=== PATIENT | female | born 1955 | race Native Hawaiian/Other Pacific Islander ===

== ENCOUNTER 2022-03-24 11:21 | Emergency (ER) | payer OTHER ==
[~2022-03-24] VITALS: Ht 157.5 cm; Wt 68.9 kg
[2022-03-24 11:35] VITALS: TEMP 97.7
[2022-03-24 11:51] LABS: PLATELET COUNT 178 K/uL (152-353)
[2022-03-24 11:54] LABS: POTASSIUM 4.2 mmol/L (3.6-5.2)
[2022-03-24 12:40] VITALS: BP 122/74
[2022-03-24] MEDS ORDERED: COATED ASPIRIN325 MG PO (13:46)
[2022-03-24] MEDS ORDERED: BENZTROPINE2 MG PO (13:47)
[2022-03-24] MEDS ORDERED: CLON1TAB18 PO (13:47)
[2022-03-24] MEDS ORDERED: DIVALPROEX125 M1 PO ×2 (13:48→13:50)
[2022-03-24] MEDS ORDERED: DOK100 MG PO (13:51)
[2022-03-24] MEDS ORDERED: BOOST BREEZE PO (13:53)
[2022-03-24] MEDS ORDERED: FOLATE400 MCG PO (13:54)
[2022-03-24] MEDS ORDERED: HALO50IN4 IM (13:55)
[2022-03-24] MEDS ORDERED: LEVO-T125 MCG PO (13:56)
[2022-03-24] MEDS ORDERED: MELOXICAM7.5 MG PO (13:56)
[2022-03-24] MEDS ORDERED: OXYB5TAB56 PO (13:57)
[2022-03-24] MEDS ORDERED: OMEPRAZOLE40 MG PO (13:57)
[2022-03-24] MEDS ORDERED: POTASSIUM CL 20 MEQ PO (14:00)
[2022-03-24] MEDS ORDERED: QUETIAPINE200 MG PO (14:01)
[2022-03-24] MEDS ORDERED: HYDROXYZINE HYD25 MG PO (14:02)
[2022-03-24] MEDS ORDERED: ROSUVASTATIN CA20 MG PO (14:02)
[2022-03-24] MEDS ORDERED: OXYCODONE HYDROC5 M1 PO (14:03)
[2022-03-24] MEDS ORDERED: BISACODYL LAXAT10 MG PR (14:04)
[2022-03-24] MEDS ORDERED: MIRALAX17 GM PO (14:06)
== END 2022-03-24 12:50 | disposition still patient (30) ==
LOC: ED 11:21
PROVIDERS: Hospitalist
DX: F25.8 Other schizoaffective disorders (principal); F03.91 Unspecified dementia, unspecified severity, with behavioral disturbance; Z72.811 Adult antisocial behavior; Z11.52 Encounter for screening for COVID-19; Z04.6 Encounter for general psychiatric examination, requested by authority
CPT/HCPCS: 80053; 85027; 87635; 93005; 96372; 99283; J1200; J2060; J3486; U0003